=== PATIENT | female | born 1990 | race Caucasian/White ===

== ENCOUNTER 2016-08-06 10:20 | Emergency (ER) | payer OTHER ==
[2016-08-06 12:37] VITALS: BP 110/66
--- NOTE | 2016-08-06 13:53 | UC ---
Respiratory Complaint HPI - HPI Summary HPI Summary: Started getting sick with nasal congestion, ST, and cough about 5 weeks ago. Symptoms gradually improved and were finally gone about 2 weeks ago, then 10 days ago got sick again and now cough is worsening with lots of nighttime awakenings. Is out of nebulized albuterol, still using inhaler a few times per day. Denies fever or ear pain, very mild R maxillary sinus pain. Dtr just dx with "severe sinusitis" and mother just diagnosed with "bronchitis and pneumonia." Also pt has allergies and her symptoms have felt somewhat like allergies at times, is out of flonase. Takes claritin but feels it is not helping. - History of Current Complaint Chief Complaint: UCRespiratory Stated Complaint: CHEST CONGEST Time Seen by Provider: 08/06/16 13:18 Hx Obtained From: Patient Hx Last Menstrual Period: 07/29/16 ?: No Onset/Duration: Gradual Onset, Lasting Days Timing: Constant Severity Initially: Moderate Severity Currently: Moderate Character: Cough: Productive Aggravating Factors: Exertion, Recumbent Position Alleviating Factors: Bronchodilator, Upright Position Associated Signs And Symptoms: Positive: Wheezing, URI, Nasal Congestion, Sinus Discomfort. Negative: Fever, Chills - Allergies/Home Medications Allergies/Adverse Reactions: Allergies Allergy/AdvReac Type Severity Reaction Status Date / Time Latex Allergy Swelling, Verified 01/24/15 07:36 ITCHING BEE STINGS Allergy Anaphylatic Uncoded 01/24/15 07:36 Shock HORSE HAIR Allergy Unknown Uncoded 01/24/15 07:36 Reaction Details Home Medications: Home Medications Escitalopram Oxalate [Lexapro] 20 mg PO DAILY 08/06/16 [History Confirmed ] PMH/Surg Hx/FS Hx/Imm Hx Respiratory History Of: Reports: Asthma - EXERCISE INDUCED- PRN ALBUTEROL FOR Neurological History Of: Reports: Seizures - HX OF -AGE 13-16 Cancer History Of: Denies: Breast Cancer - Surgical History Surgical History: Yes Surgery Procedure, Year, and Place[id number] [place] Family History Known Family History: Negative: Blood Disorder - Social History Lives: With Family Alcohol Use: None Substance Use Type: None Smoking Status (MU): Never Smoked Tobacco Review of Systems Constitutional: Negative Skin: Negative Eyes: Negative ENT: Sore Throat, Nasal Discharge Respiratory: Shortness Of Breath, Cough Cardiovascular: Negative Gastrointestinal: Negative Genitourinary: Negative Motor: Negative Neurovascular: Negative Musculoskeletal: Negative Neurological: Negative Psychological: Negative All Other Systems Reviewed And Are Negative: Yes Physical Exam Triage Information Reviewed: Yes Appearance: Well-Appearing, No Pain Distress, Well-Nourished Vital Signs: Initial Vital Signs Temp 97.4 F 08/06/16 11:45 Pulse 81 08/06/16 11:45 Resp 16 08/06/16 11:45 BP 111/72 08/06/16 11:45 Pulse Ox 100 08/06/16 11:45 Vital Signs Reviewed: Yes Eye Exam: Normal Eyes: Positive: Conjunctiva Clear ENT: Positive: Hearing grossly normal, Pharynx normal, Nasal congestion, TMs normal. Negative: Nasal drainage, Tonsillar swelling, Tonsillar exudate Dental Exam: Normal Neck exam: Normal Neck: Positive: Supple, Nontender, No Lymphadenopathy Respiratory: Positive: Chest non-tender, Lungs clear, Normal breath sounds, No respiratory distress, No accessory muscle use Cardiovascular Exam: Normal Cardiovascular: Positive: RRR, No Murmur Musculoskeletal Exam: Normal Neurological Exam: Normal Neurological: Positive: Alert Psychological Exam: Normal Skin Exam: Normal UC Diagnostic Evaluation - Laboratory O2 Sat by Pulse Oximetry: 99 Respiratory Course/Dx - Differential Dx/Diagnosis Provider Diagnoses: acute bronchitis. allergic rhinitis Discharge - Discharge Plan Condition: Stable Disposition: HOME Prescriptions: Albuterol 2.5MG/3ML (0.083%)* [Ventolin 2.5 MG/3 ML NEB.MONTSE*] 2.5 mg INH Q6H PRN #20 neb.montse PRN Reason: wheezing Cetirizine* [ZyrTEC 10 MG TAB*] 10 mg PO DAILY #31 tab Fluticasone NASAL * [Flonase *] 2 spray BOTH NARES DAILY #1 spray predniSONE TAB* [Deltasone TAB*] 40 mg PO DAILY #10 tab Patient Education Materials: Acute Bronchitis (ED), Allergic Rhinitis (ED) Referrals: Randal Saxena MD [Primary Care Provider] - Additional Instructions: Call or return if you develop increasing fever, shortness of breath, chest pain , bloody sputum, or otherwise worsen. If you have not improved at all after several days, contact your primary care physician or return here.
== END 2016-08-06 13:52 | disposition home or self-care (01) ==
LOC: UCEAST 10:20
DX: J20.9 Acute bronchitis, unspecified (principal); J30.9 Allergic rhinitis, unspecified; J45.990 Exercise induced bronchospasm
CPT/HCPCS: 99212; G0463

== ENCOUNTER 2016-08-27 13:29 | Emergency (ER) | payer OTHER ==
[2016-08-27] MEDS ORDERED: NS 0.9% 1000 ML* 3,000 ML IV ONE (17:26)
[2016-08-27] MEDS ORDERED: Acetaminophen TAB* 325 MG PO ONE (17:26)
[2016-08-27] MEDS ORDERED: Ketorolac INJ* 30 MG/ML 1 ML VIAL IV ONE (17:26)
[2016-08-27] MEDS ORDERED: Dexamethasone IV* 4 MG/ML 5 ML VIAL (20 MG) IVPB ONE (17:28)
[2016-08-27 17:49] LABS: EBV Response YES
[2016-08-27 17:51] LABS: Hematocrit 43 % (35-47); Hemoglobin 13.9 g/dl (12.0-16.0); Mean Corpuscular HGB Conc 33 g/dl (31-36); Mean Corpuscular Hemoglobin 28 pg (27-31); Mean Corpuscular Volume 84 fL (80-97); Mean Platelet Volume 8 um3 (7.4-10.4); Red Blood Count 5.06 10^6/ul (4.0-5.4); Red Cell Distribution Width 14 % (10.5-15); White Blood Count 5.5 10^3/ul (3.5-10.8)
[2016-08-27 18:06] LABS: Albumin 4.4 g/dL (3.2-5.2); BUN/Creatinine Ratio 10.8 (8-20); C Reactive Protein 101.96 mg/L (< 5.00); Calcium 9.3 mg/dL (8.6-10.3); EGFR African American 107.7 (>60); EGFR Non-African American 83.8 (>60); Globulin 3.8 g/dL (2-4); Potassium 3.5 mmol/L (3.5-5.0); Total Bilirubin 0.4 mg/dL (0.2-1.0); Total Protein 8.2 g/dL (6.4-8.9)
--- NOTE | 2016-08-27 18:14 | RAD ---
Indication: Cough and fever. 2 views of the chest including dual energy PA views demonstrate no mediastinal shift. Heart is of normal size and configuration. Lung tolbert are clear. When compared to previous exam of July 06, 2011 there is no significant change. IMPRESSION: No active cardiopulmonary disease is identified.
[2016-08-27 18:23] LABS: Mono Internal Control QC Line Present
[2016-08-27 19:58] VITALS: BP 109/64
--- NOTE | 2016-08-27 22:10 | ED ---
Ana Oviedo Auryana, scribed for Yaron Shah MD on 08/27/16 at 1731 . 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 She also has photophobia, sore throat, cough, neck pain, decreased appetite, mid/low back pain, and calf pain. She denies any rashes, vomiting or any abdominal pain. She denies any similar episodes- states has had strep within the last year but this is not similar. Her last dose of Tylenol was at 10:00 AM this morning. She reports that her [place] was recent [place] [facility] [place] with viral/U.R.I. thought to be meningitis. She reports that she got the flu shot this year and did not get sick with the flu. She was recently at [facility] and diagnosed with bronchitis, sinus infection, and allergies. PMHX is anxiety, mononucleosis (childhood), but not significant for headaches or tonsillectomy. - History of Current Complaint Chief Complaint: EDGeneral Time Seen by Provider: 08/27/16 16:13 Hx Obtained From: Patient Onset/Duration: Started Days Ago - 5, Still Present, Worse Since - progressively worse Timing: Constant Initial Severity: Mild Current Severity: Mild Pain Intensity: 20 Pain Scale Used: 0-10 Numeric Alleviating Factors: OTC Medicine - alleviates fever Associated Signs and Symptoms: Arthralgia - neck pain, Cough, Headache, Myalgia - mid/low back pain, calf pain, Sore Throat, Other: - decreased appetite, photophobia, fever - Allergy/Home Medications Allergies/Adverse Reactions: Allergies Allergy/AdvReac Type Severity Reaction Status Date / Time Latex Allergy Swelling, Verified 08/27/16 17:17 ITCHING BEE STINGS Allergy Anaphylatic Uncoded 01/24/15 07:36 Shock HORSE HAIR Allergy Unknown Uncoded 01/24/15 07:36 Reaction Details PMH/Surg Hx/FS Hx/Imm Hx Respiratory History: Reports: Hx Asthma - EXERCISE INDUCED- PRN ALBUTEROL FOR Sensory History: Denies: Hx Contacts or Glasses, Hx Hearing Aid Opthamlomology History: Denies: Hx Contacts or Glasses Neurological History: Reports: Hx Seizures - HX OF -AGE 12-16 - Cancer History Hx Chemotherapy: No Hx Radiation Therapy: No - Surgical History Surgery Procedure, Year, and Place[place] [id number][place] [place]x Anesthesia Reactions: No - Immunization History Date of Tetanus Vaccine: utd Infectious Disease History: No Infectious Disease History: Denies: Traveled Outside the [place] in Last 30 Days - Family History Known Family History: Negative: Blood Disorder - Social History Occupation: Employed Full-time Lives: With Family - mother Alcohol Use: None Substance Use Type: Reports: None Smoking Status (MU): Never Smoked Tobacco Review of Systems Positive: Fever - not on arrival Positive: Photophobia Positive: Sore Throat Cardiovascular: Negative Positive: Cough Positive: Other - decreased appetite. Negative: Abdominal Pain, Vomiting Genitourinary: Negative Positive: Other - neck pain, mid/low back pain, calf pain Skin: Negative Negative: Rash Positive: Headache Psychological: Normal All Other Systems Reviewed And Are Negative: Yes Physical Exam - Summary Physical Exam Summary: The patient is well-nourished in no acute distress and in no acute pain. The skin is warm and dry and skin color reflects adequate perfusion. Good skin turgor. HEENT: The head is normocephalic and atraumatic. The pupils are equal and reactive. The conjunctivae are clear and without drainage. Nares are patent and without drainage. Mouth reveals moist mucous membranes and the throat is without erythema. Right tonsil with exudate-slightly enlaged . The external ears are intact. The ear canals are patent. Rhinorrhea present. The tympanic membranes are intact. Neck is supple with full range of motion and non-tender. There are no carotid bruits. There is no neck vein distension. No nuchal rigidity. Anterior and posterior cervical lymphadenopathy. Respiratory: Chest is non-tender. Lungs are clear to auscultation and breath sounds are symmetrical and equal. No rales, rhonchi or wheezing. Cardiovascular: Hear is regular rate and rhythm. There is no murmur or rub auscultated. There is no peripheral edema and pulses are symmetrical and equal. Abdomen: The abdomen is soft and non-tender. There are normal bowel sounds heard in all four quadrants and there is no organomegaly palpated. No CVA tenderness. Musculoskeletal: There is no back pain noted. Extremities are non-tender with full range of motion. There is good capillary refill and good pulses. There is no peripheral edema or calf tenderness elicited. No lower extremity pain. Neurological: Patient is alert and oriented to person, place and time. The patient has symmetrical motor strength in all four extremities. Cranial nerves are grossly intact. Deep tendon reflexes are symmetrical and equal in all four extremities. Psychiatric: The patient has an appropriate affect and does not exhibit any anxiety or depression. Triage Information Reviewed: Yes Vital Signs On Initial Exam: Initial Vitals Temp Pulse Resp BP Pulse Ox 97.8 F 86 20 114/77 100 08/27/16 13:38 08/27/16 13:38 08/27/16 13:38 08/27/16 13:38 08/27/16 13:38 Vital Signs Reviewed: Yes Diagnostics - Vital Signs Vital Signs Temp Pulse Resp BP Pulse Ox 08/27/16 13:41 98.2 F 88 20 114/77 100 08/27/16 13:38 97.8 F 86 20 114/77 100 - Laboratory Lab Results: Lab Results 08/27/16 08/27/16 08/27/16 Range/Units 16:19 17:40 17:40 WBC 5.5 (3.5-10.8) 10^3/ul RBC 5.06 (4.0-5.4) 10^6/ul Hgb 13.9 (12.0-16.0) g/dl Hct 43 (35-47) % MCV 84 (80-97) fL MCH 28 (27-31) pg MCHC 33 (31-36) g/dl RDW 14 (10.5-15) % Plt Count 203 (150-450) 10^3/ul MPV 8 (7.4-10.4) um3 Neut % (Auto) 65.3 (38-83) % Lymph % (Auto) 21.5 L (25-47) % [place] % (Auto) 12.3 H (1-9) % Eos % (Auto) 0.1 (0-6) % Baso % (Auto) 0.8 (0-2) % Absolute Neuts (auto) 3.6 (1.5-7.7) 10^3/ul Absolute Lymphs (auto) 1.2 (1.0-4.8) 10^3/ul Absolute Monos (auto) 0.7 (0-0.8) 10^3/ul Absolute Eos (auto) 0 (0-0.6) 10^3/ul Absolute Basos (auto) 0 (0-0.2) 10^3/ul Absolute Nucleated RBC 0 10^3/ul Nucleated RBC % 0.1 INR (Anticoag Therapy) 0.95 (0.89-1.11) Sodium (133-145) mmol/L Potassium (3.5-5.0) mmol/L Chloride (101-111) mmol/L Carbon Dioxide (22-32) mmol/L Anion Gap (2-11) mmol/L BUN (6-24) mg/dL Creatinine (0.51-0.95) mg/dL Est GFR ( Amer) (>60) Est GFR (Non-Af Amer) (>60) BUN/Creatinine Ratio (8-20) Glucose (70-100) mg/dL Lactic Acid (0.5-2.0) mmol/L Calcium (8.6-10.3) mg/dL Total Bilirubin (0.2-1.0) mg/dL AST (13-39) U/L ALT (7-52) U/L Alkaline Phosphatase (34-104) U/L C-Reactive Protein (< 5.00) mg/L Total Protein (6.4-8.9) g/dL Albumin (3.2-5.2) g/dL Globulin (2-4) g/dL Albumin/Globulin Ratio (1-3) Monoscreen Negative (Negative) Group A Strep Rapid Negative (Negative) 08/27/16 08/27/16 Range/Units 17:40 17:40 WBC (3.5-10.8) 10^3/ul RBC (4.0-5.4) 10^6/ul Hgb (12.0-16.0) g/dl Hct (35-47) % MCV (80-97) fL MCH (27-31) pg MCHC (31-36) g/dl RDW (10.5-15) % Plt Count (150-450) 10^3/ul MPV (7.4-10.4) um3 Neut % (Auto) (38-83) % Lymph % (Auto) (25-47) % [place] % (Auto) (1-9) % Eos % (Auto) (0-6) % Baso % (Auto) (0-2) % Absolute Neuts (auto) (1.5-7.7) 10^3/ul Absolute Lymphs (auto) (1.0-4.8) 10^3/ul Absolute Monos (auto) (0-0.8) 10^3/ul Absolute Eos (auto) (0-0.6) 10^3/ul Absolute Basos (auto) (0-0.2) 10^3/ul Absolute Nucleated RBC 10^3/ul Nucleated RBC % INR (Anticoag Therapy) (0.89-1.11) Sodium 136 (133-145) mmol/L Potassium 3.5 (3.5-5.0) mmol/L Chloride 101 (101-111) mmol/L Carbon Dioxide 26 (22-32) mmol/L Anion Gap 9 (2-11) mmol/L BUN 9 (6-24) mg/dL Creatinine 0.83 (0.51-0.95) mg/dL Est GFR ( Amer) 107.7 (>60) Est GFR (Non-Af Amer) 83.8 (>60) BUN/Creatinine Ratio 10.8 (8-20) Glucose 82 (70-100) mg/dL Lactic Acid 0.8 (0.5-2.0) mmol/L Calcium 9.3 (8.6-10.3) mg/dL Total Bilirubin 0.40 (0.2-1.0) mg/dL AST 18 (13-39) U/L ALT 12 (7-52) U/L Alkaline Phosphatase 47 (34-104) U/L C-Reactive Protein 101.96 H (< 5.00) mg/L Total Protein 8.2 (6.4-8.9) g/dL Albumin 4.4 (3.2-5.2) g/dL Globulin 3.8 (2-4) g/dL Albumin/Globulin Ratio 1.2 (1-3) Monoscreen (Negative) Group A Strep Rapid (Negative) Result Diagrams: 08/27/16 17:40 08/27/16 17:40 Lab Statement: Any lab studies that have been ordered have been reviewed, and results considered in the medical decision making process. 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 She also has photophobia, sore throat, cough, neck pain, decreased appetite, mid/low back pain, and calf pain. She denies any rashes, vomiting or any abdominal pain. She denies any similar episodes- states has had strep within the last year but this is not similar. Her last dose of Tylenol was at 10:00 AM this morning. She reports that her [place] was recent [place] [facility] [place] with viral/ U.R.I. thought to be meningitis. She reports that she got the flu shot this year and did not get sick with the flu. She was recently at [facility] and diagnosed with bronchitis, sinus infection, and allergies. PMHX is anxiety, mononucleosis (childhood), but not significant for headaches or tonsillectomy. LABS ordered: elevated CRP (101.96), monocytes (12.3), Lymphocytes (21.5), otherwise labs WNL. Rapid strep: negative. Monoscreen: negative. CXR- negative. Patient felt better on re-evaluation - discharge with diagnosis of viral syndrome and exudative tonsilitis with clindamycin prescription. Recommend tylenol and ibuprofen for headache and fever. Advised to follow up with Dr. Saxena. - Febrile Illness Differential Diagnoses: Bacteremia, Pneumonia, Viremia, Other: - strept pharyngitis, mono - Diagnoses Provider Diagnoses: Viral syndrome, Exudative tonsillitis Discharge - Discharge Plan Condition: Stable Disposition: HOME Prescriptions: Clindamycin Cap(NF) [Cleocin 300 mg Cap(NF)] 300 mg PO Q6H #40 cap Patient Education Materials: Viral Syndrome (ED), Tonsillitis (ED), Clindamycin (By mouth) Referrals: Randal Saxena MD [Primary Care Provider] - 3 Days Additional Instructions: IBUPROFEN AND TYLENOL RECOMMENDED FOR HEADACHE AND FEVER. The documentation as recorded by the Ana mullins Auryana accurately reflects the service I personally performed and the decisions made by me, Yaron Shah MD.
[2016-08-30 13:15] LABS: EBV Capsid Ag IgG Ab Positive (Negative); EBV Capsid Ag IgM Ab Negative (Negative)
== END 2016-08-27 19:57 | disposition home or self-care (01) ==
LOC: ED 13:29
DX: B34.9 Viral infection, unspecified (principal); J03.90 Acute tonsillitis, unspecified; J45.990 Exercise induced bronchospasm
CPT/HCPCS: 36415; 71020; 80053; 83605; 85025; 85610; 86140; 86308; 86664; 86665; 87040; 87651; 96374; 96375; 99282; A9270-GY; J1885

== ENCOUNTER 2017-08-18 08:12 | Emergency (ER) | payer OTHER ==
[2017-08-18] MEDS ORDERED: Naproxen TAB* 250 MG PO ONE (08:58)
--- NOTE | 2017-08-18 09:14 | ED ---
Lower Extremity - HPI Summary HPI Summary: Patient is a 27-year-old female who presents emergency department for pain to the bottom of her left foot that extends into heel 2 days. Patient does not recall any specific injuries or falls. She does not she was doing yard work yesterday and also notes that she works at [employer] and stands for long period of times. Pain is worse first thing in the morning. Pain is exacerbated by walking and improved by rest. Has not taken any analgesics for pain. Symptoms are mild in severity. - History of Current Complaint Chief Complaint: EDExtremityLower Stated Complaint: PAIN IN LT LEG Time Seen by Provider: 08/18/17 08:33 Hx Obtained From: Patient Hx Last Menstrual Period: 07/04/17 Pain Intensity: 9 - Allergies/Home Medications Allergies/Adverse Reactions: Allergies Allergy/AdvReac Type Severity Reaction Status Date / Time latex Allergy See Comment Verified 07/12/17 08:51 BEE STINGS Allergy Anaphylatic Uncoded 07/12/17 08:51 Shock HORSE HAIR Allergy Unknown Uncoded 07/12/17 08:51 Reaction Details Home Medications: Home Medications ALPRAZolam TAB* [Xanax TAB*] 0.5 mg PO DAILY PRN 08/18/17 [History Confirmed 01/26] Norethindrone-Ethinyl Estrad [Pirmella ] 1 tab PO DAILY 08/18/17 [History Confirmed 08/18/17] PMH/Surg Hx/FS Hx/Imm Hx Previously Healthy: Yes Respiratory History: Reports: Hx Asthma - EXERCISE INDUCED- PRN ALBUTEROL FOR Sensory History: Denies: Hx Contacts or Glasses, Hx Hearing Aid Opthamlomology History: Denies: Hx Contacts or Glasses Neurological History: Reports: Hx Seizures - HX OF -AGE 13-16 - Cancer History Hx Chemotherapy: No Hx Radiation Therapy: No - Surgical History Surgery Procedure, Year, and Place: [id number][place] [place] Hx Anesthesia Reactions: No - Immunization History Date of Tetanus Vaccine: utd Infectious Disease History: No Infectious Disease History: Denies: Traveled Outside the [place] in Last 30 Days - Family History Known Family History: Positive: Hypertension Negative: Blood Disorder Family History: KIDNEY STONES - Social History Occupation: Employed Full-time Lives: With Family Alcohol Use: None Substance Use Type: Reports: None Smoking Status (MU): Never Smoked Tobacco Review of Systems Positive: Other - Pain to bottom of left foot that extends to calf. All Other Systems Reviewed And Are Negative: Yes Physical Exam Triage Information Reviewed: Yes Vital Signs On Initial Exam: Initial Vitals Temp Pulse Resp BP Pulse Ox 97.7 F 89 16 105/62 99 08/18/17 08:20 08/18/17 08:20 08/18/17 08:20 08/18/17 08:20 08/18/17 08:20 Vital Signs Reviewed: Yes Appearance: Positive: Well-Appearing - Pt. lying on bed in NAD. Skin: Positive: Warm, Dry Head/Face: Positive: Normal Head/Face Inspection Eyes: Positive: Normal, CAT Neck: Positive: Supple Musculoskeletal: Positive: Other - Left leg is neurovascularly intact. No calf edema or pain. No signs of trauma or infection to left lower leg. Pain to palpation of achilles tendon and to bottom of foot. Neurological: Positive: Normal Psychiatric: Positive: Normal Diagnostics - Vital Signs Vital Signs Temp Pulse Resp BP Pulse Ox 08/18/17 08:20 97.7 F 89 16 105/62 99 - Laboratory Lab Statement: Any lab studies that have been ordered have been reviewed, and results considered in the medical decision making process. Lower Extremity Course/Dx - Course Course Of Treatment: Pt. presenting with pain to the bottom of her left foot and heel. Exam is unremarkable. Xray ordered per pt.'s request and is negative for fx or acute findings, reading per radiology. Results discussed. Suspect plantar fasciitis. Naproxen rx. Excercises given in pt. ed. Will f.u with PCP. - Diagnoses Differential Diagnosis/HQI/PQRI: Positive: Contusion, Fracture (Closed), Sprain , Strain, Tendonitis Provider Diagnoses: Plantar fasciitis of left foot Discharge - Sign-Out/Discharge Documenting (check all that apply): Discharge/Admit/Transfer - Discharge Plan Condition: Good Disposition: HOME Prescriptions: Naproxen [Naproxen 500 mg tab] 500 mg PO Q12H #20 tablet. Patient Education Materials: Plantar Fasciitis (ED), Plantar Fasciitis Exercises (ED) Forms: *Work Release Referrals: Randal Saxena MD [Primary Care Provider] - Additional Instructions: Follow up with PCP if symptoms continue Ice foot intermittently Perform exercises on hand out Naproxen as directed for pain - Billing Disposition and Condition Condition: GOOD Disposition: HOME
--- NOTE | 2017-08-18 09:38 | RAD ---
Indication: Left foot pain. 3 views of left foot demonstrates no fracture. No other bone or joint abnormality is identified. IMPRESSION: No fracture of left foot is noted.
[2017-08-18 10:05] VITALS: BP 131/71
== END 2017-08-18 10:05 | disposition home or self-care (01) ==
LOC: ED 08:12
DX: M72.2 Plantar fascial fibromatosis (principal)
CPT/HCPCS: 99282; A9270-GY

== ENCOUNTER 2017-12-03 08:21 | Emergency (ER) | payer OTHER ==
--- NOTE | 2017-12-03 08:30 | ED ---
Back Pain - HPI Summary HPI Summary: Patient is a 27-year-old female who presents emergency department for upper left back pain that started today at work. Pt. states she works at [employer]. Pt. 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 Pain is worse with movement and raising left arm. Pt. notes recent sinus congestion and mild cough. Denies fever. Symptoms are mild in severity. - History of Current Complaint Chief Complaint: EDBackInjuryPain Stated Complaint: BACK PAIN Time Seen by Provider: 12/03/17 08:27 Hx Obtained From: Patient Hx Last Menstrual Period: 07/04/17 Pain Intensity: 8 - Allergies/Home Medications Allergies/Adverse Reactions: Allergies Allergy/AdvReac Type Severity Reaction Status Date / Time latex Allergy See Comment Verified 07/12/17 08:51 BEE STINGS Allergy Anaphylatic Uncoded 07/12/17 08:51 Shock HORSE HAIR Allergy Unknown Uncoded 07/12/17 08:51 Reaction Details PMH/Surg Hx/FS Hx/Imm Hx Previously Healthy: Yes Respiratory History: Reports: Hx Asthma - EXERCISE INDUCED- PRN ALBUTEROL FOR Sensory History: Denies: Hx Contacts or Glasses, Hx Hearing Aid Opthamlomology History: Denies: Hx Contacts or Glasses Neurological History: Reports: Hx Seizures - HX OF -AGE 13-16 - Cancer History Hx Chemotherapy: No Hx Radiation Therapy: No - Surgical History Surgery Procedure, Year, and Place: [id number] [place] Hx Anesthesia Reactions: No - Immunization History Date of Tetanus Vaccine: utd Infectious Disease History: No Infectious Disease History: Denies: Traveled Outside the [place] in Last 30 Days - Family History Known Family History: Positive: Hypertension Negative: Blood Disorder Family History: KIDNEY STONES - Social History Occupation: Employed Full-time Lives: With Family Alcohol Use: None Substance Use Type: Reports: None Smoking Status (MU): Never Smoked Tobacco Review of Systems Constitutional: Negative Negative: Fever, Chills Positive: Nasal Discharge Cardiovascular: Negative Respiratory: Negative Gastrointestinal: Negative Genitourinary: Negative Negative: dysuria Positive: Other - upper back pain. Negative: Weakness, Paresthesia, Numbness All Other Systems Reviewed And Are Negative: Yes Physical Exam Triage Information Reviewed: Yes Vital Signs On Initial Exam: Initial Vitals Temp Pulse Resp BP Pulse Ox 98.0 F 82 16 115/77 99 12/03/17 08:23 12/03/17 08:23 12/03/17 08:23 12/03/17 08:23 12/03/17 08:23 Appearance: Positive: Well-Appearing - Pt. sitting Skin: Positive: Warm, Dry Head/Face: Positive: Normal Head/Face Inspection Eyes: Positive: Normal, EOMI Neck: Positive: Supple Respiratory/Lung Sounds: Positive: Clear to Auscultation, Breath Sounds Present Cardiovascular: Positive: Normal, RRR Musculoskeletal: Positive: Normal, Strength/ROM Intact, Other - Left paraspinal pain to the mid thoracic region. Neurological: Positive: Normal, CN Intact II-III Psychiatric: Positive: Affect/Mood Appropriate Diagnostics - Vital Signs Vital Signs Temp Pulse Resp BP Pulse Ox 12/03/17 08:23 98.0 F 82 16 115/77 99 - Laboratory Lab Statement: Any lab studies that have been ordered have been reviewed, and results considered in the medical decision making process. Back Pain Course/Dx - Course Course Of Treatment: Patient presenting for reproducible upper left back pain after a bending injury at work. No neurological deficits on exam. Patient was given a dose of Toradol and Norflex in the ER. Prescription for anti- inflammatories and muscle relaxers sent to pharmacy. Advised to avoid heavy lifting. To follow-up with PCP or Workmen's Compensation doctor. To apply warm compresses and gentle massage. To return to ER symptoms change or worsen. - Diagnoses Differential Diagnosis/HQI/PQRI: Positive: Strain, Sprain Provider Diagnoses: Muscle spasm, Strain of thoracic region Discharge - Sign-Out/Discharge Documenting (check all that apply): Patient Departure - Discharge Plan Condition: Good Disposition: HOME Prescriptions: Cyclobenzaprine TAB* [Flexeril 10 MG TAB*] 10 mg PO TID PRN #9 tab PRN Reason: Pain Naproxen [Naproxen 500 mg tab] 500 mg PO Q12H #20 tablet Patient Education Materials: Muscle Strain (ED), Muscle Spasm (ED) Forms: *Work Release Referrals: Randal Saxena MD [Primary Care Provider] - Additional Instructions: Schedule a follow up appointment with workmen compensation or PCP Apply warm compresses Take medication as directed Gentle massage Return to ER if symptoms change or worsen - Billing Disposition and Condition Condition: GOOD Disposition: Home
[2017-12-03] MEDS ORDERED: Ketorolac INJ* 60 MG/2 ML VIAL IM ONE (08:36)
[2017-12-03] MEDS ORDERED: Orphenadrine Citrate IV* 30 MG/ML 2 ML VIAL IM ONE (08:36)
[2017-12-03 11:44] VITALS: BP 121/78
== END 2017-12-03 10:57 | disposition home or self-care (01) ==
LOC: ED 08:21
DX: M62.830 Muscle spasm of back (principal); S29.012A Strain of muscle and tendon of back wall of thorax, initial encounter; X50.1XXA Overexertion from prolonged static or awkward postures, initial encounter; Y93.89 Activity, other specified; Y92.512 Supermarket, store or market as the place of occurrence of the external cause; Y99.0 Civilian activity done for income or pay; J45.990 Exercise induced bronchospasm
CPT/HCPCS: 96372; 99282; J1885; J2360

== ENCOUNTER 2022-05-17 09:45 | Inpatient (IN) ==
[2022-05-17 13:07] LABS: ABS Basophils 0.1 10^3/ul (0-0.2); ABS Lymphocytes 2.5 10^3/ul (1.0-4.8); ABS Monocytes 0.7 10^3/ul (0-0.8); ABS Neutrophils 8.3 10^3/ul (1.5-7.7); Eosinophil % 0.4 %; Hematocrit 42 % (35-47); Hemoglobin 13.7 g/dL (12.0-16.0); Lymphocyte % 21.7 %; Mean Corpuscular HGB Conc 32 g/dL (31-36); Mean Corpuscular Hemoglobin 27 pg (27-31); Mean Corpuscular Volume 82 fL (80-97); Mean Platelet Volume 7.5 fL (7.4-10.4); Nucleated Red Blood Cells % 0.1; Platelet Count 257 10^3/uL (150-450); Red Blood Count 5.13 10^6 /uL (3.70-4.87); Red Cell Distribution Width 14 % (10-15); White Blood Count 11.7 10^3/uL (3.5-10.8)
[2022-05-17 13:27] LABS: High Sens Troponin Baseline 60 pg/mL (<15)
[2022-05-17 13:49] LABS: ALT 13 U/L (7-52); AST 13 U/L (13-39); Albumin 4.3 g/dL (3.2-5.2); Albumin/Globulin Ratio 1.4 (1-3); Alkaline Phosphatase 56 U/L (35-149); Anion Gap 6 mmol/L (2-11); Blood Urea Nitrogen 6 mg/dL (6-24); CO2 Carbon Dioxide 26 mmol/L (22-32); Calcium 9.1 mg/dL (8.6-10.3); Chloride 106 mmol/L (101-111); Creatinine, Serum 0.63 mg/dL (0.51-0.95); Glucose 75 mg/dL (70-100); Potassium 4.3 mmol/L (3.5-5.0); Sodium 138 mmol/L (135-145); Total Protein 7.3 g/dL (6.4-8.9); eGFR CKD-EPI 121.6 (>60)
[2022-05-17 13:58] LABS: HCG Pregnancy < 0.60 mIU/mL
[2022-05-17] MEDS ORDERED: Iohexol 350 (CONTRAST) 500 ML MDV IV ONE (14:20)
[2022-05-17 14:29] LABS: High Sensitivity Troponin 1 Hr 55 pg/mL (<15)
[2022-05-17] MEDS: Heparin DRIP 25,000 UNITS BAG 25,000 UNITS/500 ML BAG IV SCH (15:47)
[2022-05-17 15:50] LABS: ABS Basophils 0.1 10^3/ul (0-0.2); ABS Lymphocytes 2.4 10^3/ul (1.0-4.8); ABS Monocytes 0.7 10^3/ul (0-0.8); ABS Neutrophils 8.4 10^3/ul (1.5-7.7); Eosinophil % 0.3 %; Hematocrit 41 % (35-47); Hemoglobin 13.2 g/dL (12.0-16.0); Lymphocyte % 20.7 %; Mean Corpuscular HGB Conc 33 g/dL (31-36); Mean Corpuscular Hemoglobin 27 pg (27-31); Mean Corpuscular Volume 82 fL (80-97); Mean Platelet Volume 7.3 fL (7.4-10.4); Platelet Count 247 10^3/uL (150-450); Red Blood Count 4.94 10^6 /uL (3.70-4.87); Red Cell Distribution Width 14 % (10-15); White Blood Count 11.6 10^3/uL (3.5-10.8)
[2022-05-17] MEDS: Heparin 5000 UNITS/ML 1 mL VIAL IV SCH ×2 (15:50→23:27)
[2022-05-17 16:47] LABS: Creatinine, Serum 0.61 mg/dL (0.51-0.95); eGFR CKD-EPI 122.5 (>60)
[2022-05-17] MEDS ORDERED: Albuterol HFA INHALER 8 gm MDI INH PRN (17:38)
[2022-05-18 06:52] LABS: ABS Basophils 0.1 10^3/ul (0-0.2); ABS Lymphocytes 2.6 10^3/ul (1.0-4.8); ABS Monocytes 0.6 10^3/ul (0-0.8); ABS Neutrophils 5.4 10^3/ul (1.5-7.7); Eosinophil % 0.6 %; Hematocrit 40 % (35-47); Hemoglobin 13.3 g/dL (12.0-16.0); Lymphocyte % 30.3 %; Mean Corpuscular HGB Conc 33 g/dL (31-36); Mean Corpuscular Hemoglobin 27 pg (27-31); Mean Corpuscular Volume 83 fL (80-97); Platelet Count 256 10^3/uL (150-450); Red Blood Count 4.86 10^6 /uL (3.70-4.87); Red Cell Distribution Width 14 % (10-15); White Blood Count 8.7 10^3/uL (3.5-10.8)
[2022-05-18] MEDS ORDERED: NS 0.9% 1000 ml BAG 1,000 ML IV ONE ×2 (07:00→11:35)
[2022-05-18 07:06] LABS: Albumin 3.7 g/dL (3.2-5.2); Albumin/Globulin Ratio 1.3 (1-3); Calcium 8.5 mg/dL (8.6-10.3); Creatinine, Serum 0.56 mg/dL (0.51-0.95); Globulin 2.9 g/dL (2-4); Potassium 3.7 mmol/L (3.5-5.0); Total Bilirubin 0.5 mg/dL (0.2-1.0); Total Protein 6.6 g/dL (6.4-8.9); eGFR CKD-EPI 125.1 (>60)
[2022-05-18] MEDS: Heparin 5000 UNITS/ML 1 mL VIAL IV SCH ×2 (07:15→21:20)
[2022-05-18] MEDS ORDERED: Pneumococcal Vac 23-Polyvalent IM ONE (09:00)
[2022-05-18] MEDS ORDERED: Influenza vaccine *QUAD* *2022-23* 0.5 ML SYRINGE IM ONE (09:00)
[2022-05-18] MEDS ORDERED: Heparin DRIP 25,000 UNITS BAG 25,000 UNITS/500 ML BAG ONE (09:08)
[2022-05-18] MEDS ORDERED: fentaNYL 100 mcg/2 ml 50 MCG/ML VIAL IV SLOW PU ONE (09:09)
[2022-05-18] MEDS ORDERED: Flumazenil 0.5 mg/5 ml 0.1 MG/ML 5 ml VIAL IV PRN (09:09)
[2022-05-18] MEDS ORDERED: Naloxone 0.4 mg VIAL 0.4 mg/ml 1 ml VIAL IV PUSH PRN (09:09)
[2022-05-18] MEDS ORDERED: Midazolam 10 mg/10 ml VIAL 1 mg/ml 10 ml VIAL (10 mg) IV SLOW PU ONE (09:09)
[2022-05-18] MEDS ORDERED: Lidocaine 1% VIAL 10 MG/ML VIAL 30 ML ONE (09:16)
[2022-05-18] MEDS ORDERED: fentaNYL 100 mcg/2 ml 50 MCG/ML VIAL ONE ×2 (09:16→10:02)
[2022-05-18] MEDS ORDERED: Iohexol 350 (CONTRAST) 100 ML PAK IV ONE (09:16)
[2022-05-18] MEDS ORDERED: Midazolam 5 mg/5 ml VIAL 1 mg/ml 5 ml VIAL (5 mg) ONE (09:16)
[2022-05-18] MEDS ORDERED: Heparin 2 UNITS/ML IVPREMIX 3,000 UNIT/1,500 ML BAG IV ONE (09:17)
[2022-05-18] MEDS ORDERED: Heparin 1,000 UNIT/ML 10 ml (10,000 UNITS) CATHLAB/DIALYSIS ONE ×2 (09:42→11:00)
[2022-05-18] MEDS ORDERED: Ondansetron 4 mg VIAL 2 MG/ML 2 ml VIAL ONE (11:36)
[2022-05-18] MEDS: Heparin DRIP 25,000 UNITS BAG 25,000 UNITS/500 ML BAG IV SCH (15:32)
[2022-05-18] MEDS ORDERED: Fluticasone NASAL SPRAY 50MCG 16 gm SPRAY BTL BOTH NARES PRN (18:12)
[2022-05-18 21:45] LABS: Calcium 8.1 mg/dL (8.6-10.3); Creatinine, Serum 0.9 mg/dL (0.51-0.95); Potassium 4.3 mmol/L (3.5-5.0); eGFR CKD-EPI 87.7 (>60)
[2022-05-19] MEDS: Heparin DRIP 25,000 UNITS BAG 25,000 UNITS/500 ML BAG IV SCH (03:29)
[2022-05-19 07:42] LABS: Calcium 8.3 mg/dL (8.6-10.3); Creatinine, Serum 0.66 mg/dL (0.51-0.95); Magnesium 2.1 mg/dL (1.9-2.7); Potassium 4.1 mmol/L (3.5-5.0); eGFR CKD-EPI 120.2 (>60)
[2022-05-19] MEDS ORDERED: Influenza vaccine *QUAD* *2022-23* 0.5 ML SYRINGE IM ONE (09:00)
[2022-05-19] MEDS ORDERED: Pneumococcal Vac 23-Polyvalent IM ONE (09:00)
[2022-05-19 12:31] VITALS: BP 107/74
== END 2022-05-19 12:25 | disposition home or self-care (01) | DRG 950 ==
LOC: ED 09:45 → EDHOLD 17:31 → SUATTDRO 17:31 → MEDTELE 19:49 → ICU 05-18 12:03
PROVIDERS: ADMIT Internal Medicine; ATTEND Family Medicine